=== PATIENT | female | born 1990 | race Caucasian/White ===

== ENCOUNTER 2024-04-22 06:53 | Outpatient (OUT) | payer OTHER, SELFPAY ==
--- NOTE | 2024-04-22 06:58 | MR_ITS ---
The [address] [address] Patient Name: KYRA CANO MRN: [id number] date: 1990 Sex: F Assigned Patient Location: MRI Current Patient Location: MRI Accession/Order Number: [id number] Exam Date: 04/22/2024 07:05 Report Date: 04/22/2024 08:00 At the request of: MARIAA CHANDLER Procedure: MR head/brain wo con MR head/brain wo con, 04/22/2024 7:05 AM EST INDICATION: altered mental status COMPARISON: There is no appropriate prior study for comparison. TECHNIQUE: Multiplanar, multisequential MRI images of brain were obtained without injection of contrast. FINDINGS: The cerebral sulci as well as ventricular system are appropriate for age. There is no restricted diffusion. There is no intracranial mass, mass effect, midline shift, intra or extra-axial fluid collection or large hemorrhage. Normal flow-void in the intracranial vessels is noted. The visualized portions of orbits, mastoid air cells as well as paranasal sinuses are unremarkable. MR/MR head/brain wo con IMPRESSION: No acute intracranial process is noted. Normal MRI of the brain. Electronically authenticated by: HEMAL COFFEY Date: 04/22/2024 08:00
--- NOTE | 2024-04-22 06:58 | CT_ITS ---
The [address] [address] Patient Name: KYRA CANO MRN: [id number] date: 1990 Sex: F Assigned Patient Location: MRI Current Patient Location: Accession/Order Number: [id number] Exam Date: 04/22/2024 08:15 Report Date: 04/23/2024 05:05 At the request of: MARIAA CHANDLER Procedure: CT chest w con EXAMINATION: CT chest w con HISTORY: r22.2 chest mass COMPARISON: No prior studies or reports available for comparison. TECHNIQUE: Multi-planar CT images were obtained without and/or with IV contrast as indicated by examination type. Axial, Coronal, and Sagittal images. Dose reduction techniques were achieved by using automated exposure control and/or adjustment of mA and/or kV according to patient size and/or use of iterative reconstruction technique. FINDINGS: LUNGS: 5 mm nodule within posterior medial left lung base; nonspecific but statistically favoring a granuloma. PLEURA: No mass, effusion, or pneumothorax. VASCULATURE: No abnormality. EBONIE: No mass or adenopathy. MEDIASTINUM: Soft tissue within upper anterior mediastinum favoring thymic tissue. CARDIAC: No enlargement or pericardial thickening.. Coronary artery calcifications: AORTA: No aneurysm or dissection. CHEST WALL: [Within anterior left chest wall. No axillary or supraclavicular mass or lymphadenopathy. BONES: No bone lesion or fracture. LIMITED ABDOMEN: No suspicious findings Limited images of the upper abdomen. OTHER: Negative. CT/CT chest w con IMPRESSION: 1. Soft tissue within upper anterior mediastinum favoring residual versus reactive sinus. No overtly suspicious findings. Electronically authenticated by: JANIA PAK Date: 04/23/2024 05:05
== END 2024-04-22 06:54 | disposition home or self-care (01) ==
LOC: MRI 06:53
PROVIDERS: PCP Family Medicine; Visit Provider Family Medicine
DX: R41.82 Altered mental status, unspecified (principal); R22.2 Localized swelling, mass and lump, trunk
CPT/HCPCS: 70551; 71260; Q9967

== ENCOUNTER 2024-11-28 08:23 | Outpatient (OUT) | payer OTHER, SELFPAY ==
--- OUTSIDE RECORDS SUMMARY | 2024-04-22 04:38 | XMS_ITS ---
Author Organization The [facility] in [place] Address [address] [place] [address] Care Team Providers Care Mop Man Name Role Phone Shaquille Chow Primary Care Provider [phone] REASON FOR VISIT MRI Results- Encounters Encounter Location Date Provider Diagnosis [address] [address] 04/22/2024 Shaquille Chow Plan Of Treatment No Information Progress Notes * MARGOIsabella AMESDOB:1990 (34 yo F)Acc No.[id number]:04/22/2024 Patient: Isabella MERINO :1990 A ge:34 Y S ex:Female Address:[address] [place] [address] * true * Date: Generated for Arii romana/Ale/eTransmitting on: 0 11/28/2024 08:25 AM EDT
--- OUTSIDE RECORDS SUMMARY | 2024-04-23 17:04 | XMS_ITS ---
Author Organization The [facility] in [place] Address [address] [place] [address] Care Team Providers Care Contractor Broomcorn Threshing Name Role Phone Shaquille Chow Primary Care Provider REASON FOR VISIT CT results Encounters Encounter Location Date Provider Diagnosis [address] [place] [address] 04/23/2024 Shaquille Chow Plan Of Treatment No Information Progress Notes * MARGOIsabella AMESDOB:1990 (34 yo F)Acc No.[id number]:04/23/2024 Patient: Isabella MERINO :1990 A ge:34 Y S ex:Female Address:[address] [place] [address] * true * Date: Generated for Arii romana/Ale/eTransmitting on: 0 11/28/2024 08:25 AM EDT
--- OUTSIDE RECORDS SUMMARY | 2024-08-26 04:30 | XMS_ITS ---
Author Organization [facility] es Address [address] [place] [address] Care Team Providers Care Posting Clerk Name Role Phone Darrion Marcos Primary Care Provider [phone] Tiffanie Price [phone] REASON FOR VISIT apro Encounters Encounter Location Date Provider Diagnosis [facility] [place] [place] [address] 08/26/2024 Tiffanie Mathew Plan Of Treatment Next Appt Details Provider Name:Abigail Jc, 01/08/2025 01:00:00 PM, [address], [place], [address], Provider Name:Tiffanie Mathew, 03/24/2025 02:45:00 PM, [address] [place], [address], Progress Notes * KYRA CANO PDOB:[birth year] (34 yo F)Acc No.[id number]:08/26/2024 Patient: Isabel KYRA SUN Provider: Meryl Mathew :1990 A ge:34 Y S ex:Female Date:08/26/2024 Address:[address], [place], [id number] Pcp:Darrion Marcos Subjective: * Chief Complaints: * 1 . Apro. * Medical History: Objective: * Vitals: Assessment: Plan: * Treatment: * Images: * Electronic signature of Azra Mathew on 11/28/2024 at 08:26 AM EDT Sign off status: Pending * Provider: Meryl Mathew Date: 0 08/26/2024 Generated for Lucho avendano/Ale/Shanna on: 0 11/28/2024 08:26 AM EDT
--- OUTSIDE RECORDS SUMMARY | 2024-10-23 09:02 | XMS_ITS ---
Author Organization The [facility] in [place] Address [address] [place] [address] Care Team Providers Care C Web Developer Name Role Phone Shaquille Chow Primary Care Provider [phone] chest Encounters Encounter Location Date Provider Diagnosis [facility] [address] [place] [address] 10/23/2024 Shaquille Chow Chest mass R22.2 Assessments Encounter Date Diagnosis (ICD Code) Assessment Notes Treatment Notes Treatment Clinical Notes Section Notes 10/23/2024 Chest mass (ICD-10 - R22.2) Plan Of Treatment Pending Test Test Name Order Date CT Chest w/contrast * 10/23/2024 Progress Notes * Isabella MCINTYREDOB:1990 (34 yo F)Acc No.[id number]:10/23/2024 Patient: Isabella MERINO :1990 A ge:34 Y S ex:Female Address:[address] [place] [address] Subjective: * Chief Complaints: * C T chest * Medical History: * Surgical History: * Hospitalization/Major Diagno stic Procedure: * Medications: Objective: * Vitals: * Physical Examination: Assessment: * Assessment: 1. C hest mass - R22.2 (Primary) Plan: * Treatment: * Procedure Codes: * true * Date: Generated for Printi ng/Faxing/eTransmitting on: 0 11/28/2024 08:25 AM EDT
--- OUTSIDE RECORDS SUMMARY | 2024-11-21 05:00 | XMS_ITS ---
Author Organization [facility] es Address [address] [place] [place] [address] Care Team Providers Care Rate Manager Name Role Phone Darrion Marcos Primary Care Provider [phone] Abigail Gillis Unavailable REASON FOR VISIT FILLING Encounters Encounter Location Date Provider Diagnosis [facility] [address] [place] [address] 11/21/2024 Abigail Peacock Plan Of Treatment Next Appt Details Provider Name:Abigail Peacock, 01/08/2025 01:00:00 PM, [address] [facility] [place], [address], Provider Name:Tiffanie Mathew, 03/24/2025 02:45:00 PM, [address] [place], [address], Progress Notes * KYRA CANO PDOB:[birth year] (34 yo F)Acc No.[id number]:11/21/2024 Patient: Isabel KYRA SUN Provider: Susana PEACOCK DDS :1990 A ge:34 Y S ex:Female Date:11/21/2024 Address:[address], [place], [place] Pcp:Darrion Marcos Subjective: * Chief Complaints: * 1 . FILLING. * Medical History: Objective: * Vitals: Assessment: Plan: * Treatment: * Images: * Electronic signature of Daria Peacock DDS on 11/28/2024 at 08:26 AM EDT Sign off status: Pending * Provider: Susana PEACOCK DDS Date: 11/21/2024 Generated for Lucho avendano/Ale/Shanna on: 11/28/2024 08:26 AM EDT
--- OUTSIDE RECORDS SUMMARY | 2024-11-21 09:45 | XMS_ITS | Encounter Summary ---
Author Organization [facility] Address [address] [place] [address] Care Team Providers Care Fittings Finisher Name Role Phone Ranulfo Gomez Unavailable Nicanor Chow MD Primary Care Provider [phone] Reason for Visit * Reason Comments sick visit Patient here for pro blem visit. Patient reports that she has been bleeding since she had the Mirena inserted which was on 07/23/24. Patient states that she was spotting at first then the bleeding got heavier than meter shop superintendent. Patient reports that she is having quarter size blood clots. LMP unknown. Patient reports using super tampon every several hours on her heavy days Encounter Details Date Type Department Care Team (Late st Contact Info) Description 11/21/2024 9:45 AM EDT Office Visit [facility] [address] [place] D [address] [phone] Tori Puente, DO [address] [phone] Breakthrough bleeding with IUD (Primary Dx); Hx of tubal ligation Social History Tobacco Use Types Packs/Day Years Used Date Smoking Tobacco: Former Cigarettes 0.5 5 Smokeless Tobacco: Former Alcohol Use Standard Drinks/Week Comments Not Currently 0 (1 standard drink = 0.6 oz pur e alcohol) Comments No Sex and Gender Information Value Date Recorded Sex Assigned at Not on file Legal Sex Female 6:56 PM EDT Gender Identity Not on file Sexual Orientation Not on file documented as of this encounter Last Filed Vital Signs Vital Sign Reading Time Taken Comments Blood Pressure 110/70 11/21/2024 9:39 AM EDT Pulse - - Temperature - - Respiratory Rate - - Oxygen Saturation - - Inhaled Oxygen Concentration - - Weight 67.6 kg (149 lb) 11/21/2024 9:39 AM EDT Height - - Body Mass Index 26.39 07/07/2023 8:08 AM EST documented in this encounter Progress Notes * Tori Puente, DO - 11/21/2024 9:45 AM EDT Images from the original note were not included. Subjective Isabella Mcintyre is a 34 y.o. female HPI Chief Complaint Patient presents with sick visit Patient here for problem visit. Patient reports that she has been bleeding since she had the Mirenainserted which was on 07/23/24. Patient states that she was spotting at first then the bleeding got heavier than meter shop superintendent. Patient reports that she is having quarter size blood clots. LMP unknown. Patient reports using super tampon every several hours on her heavy days Past Medical History: Diagnosis Date Ingrown toenail Ruptured ovarian cyst right cyst Past Surgical History: Procedure Laterality Date SECTION, LOW TRANSVERSE x4 TUBAL LIGATION Bilateral Family History Problem Relation Name Age of Onset Osteoporosis Mother's Sister Jenise Chavez Social History Tobacco Use Smoking status: Former Current packs/day: 0.50 Average packs/day: 0.5 packs/day for 5.0 years (2.5 ttl pk-yrs) Types: Cigarettes Smokeless tobacco: Former Vaping Use Vaping status: Never Used Substance Use Topics Alcohol use: Not Currently Drug use: Never OB History Para Term AB Living 4 4 4 SAB IAB Ectopic Multiple Live Births # Outcome Date GA Lbr Wilmer/2nd Weight Sex Type Anes PTL Lv 4 Term 3 Term 2 Term 1 Term No Known Allergies Current Outpatient Medications on File Prior to Visit Medication Sig Dispense Refill Levonorgestrel (Mirena, 52 MG,) 20 MCG/DAY intrauterine device by Intrauterine route No current facility-administered medications on file prior to visit. Review of Systems Constitutional: Negative for chills and fever. Respiratory: Negative for shortness of breath. Cardiovascular: Negative for chest pain. Gastrointestinal: Negative for nausea and vomiting. Genitourinary: Negative for dysuria, pelvic pain and vaginal discharge. Neurological: Negative for dizziness and headaches. Objective BP 110/70 Wt 149 lb BMI 26.39 kg/m?? Physical Exam Constitutional: Appearance: Normal appearance. Genitourinary: No lesions in the vagina. Right Labia: No lesions. Left Labia: No lesions. Vaginal bleeding (scant light brown in vault) present. No vaginal discharge. Right Adnexa: not tender and no mass present. Left Adnexa: not tender and no mass present. No cervical lesion. IUD strings visualized. Uterus is not tender. Uterus is anteverted. Neurological: Mental Status: She is alert. Skin: General: Skin is warm and dry. Psychiatric: Mood and Affect: Mood normal. Assessment/Plan 1. Breakthrough bleeding with IUD (Primary) Pelvic ultrasound to be scheduled and will discuss findings at the next office visit. Reassured patient 2. Hx of tubal ligation documented in this encounter Plan of Treatment Upcoming Encounters Date Type Department Care Team (Late st Contact Info) Description 12/19/2024 1:00 PM EDT Ancillary Procedure [facility] [address] [address] 12/19/2024 1:45 PM EDT Office Visit [facility] [address] [address] Tori Puente DO [address] [facility] D [address] [address] 08/04/2025 1:30 PM EDT Office Visit [facility] [address] [address] Tori Puente DO [address] [address] documented as of this encounter Visit Diagnoses Diagnosis Breakthrough bleeding with IUD- Primary Hx of tubal ligation documented in this encounter Care Teams Fittings Finisher Relationship Specialty Start Date End Date Ranulfo Gomez PA [address] [place] [address] PCP - [facility] 05/22/24 Nicanor Chow MD [address] [place] [address] PCP - General Family Medicine 10/02/24 documented as of this encounter
--- OUTSIDE RECORDS SUMMARY | 2024-11-28 08:25 | XMS_ITS | Clinical Summary ---
Author Organization [facility] Address [address] [place] [address] Care Team Providers Care Sheet Metal Assembler And Riveter Name Role Phone Nicanor Chow MD Primary Care Provider [phone] Allergies No known active allergies Medications norethindrone-et hinyl estradiol (FEMHRT 05/26) 1-5 mg-mcg Tab Take by mouth daily . Active citalopram (CELEXA) 10 MG tablet Take 1 (one) tablet (10 mg total) by mouth daily . Active Social History Tobacco Use Types Packs/Day Years Used Date Smoking Tobacco: Never Passive Smoke Exposure: Never Smokeless Tobacco: Never Tobacco Cessation:Counseling Given: Not Answered Alcohol Use Standard Drinks/Week Comments Not Currently 0 (1 standard drink = 0.6 oz pur e alcohol) Comments Unknown Sex and Gender Information Value Date Recorded Sex Assigned at Not on file Legal Sex Female 11:08 AM EDT Gender Identity Female 10/14/2022 11:38 AM EDT Sexual Orientation Straight 10/14/2022 11 :38 AM EDT Last Filed Vital Signs Vital Sign Reading Time Taken Comments Blood Pressure 110/68 10/14/2022 11:12 AM EDT Pulse 99 10/14/2022 11:12 AM EDT Temperature 36.5 C (97.7 F) 10/14/2022 11:12 AM EDT Respiratory Rate 16 10/14/2022 11:12 AM EDT Oxygen Saturation 98% 10/14/2022 11:12 AM EDT Inhaled Oxygen Concentration - - Weight 69.4 kg (153 lb) 10/14/2022 11:12 AM EDT Height 160 cm (5' 3 ) 10/14/2022 11:12 AM EDT Body Mass Index 27.1 10/14/2022 11:12 AM EDT Plan of Treatment Health Maintenance Due Date Last Done Comments Wellness Visit 1994 Depression Screening/Follow-Up (PHQ-2/9) 2003 HIV Screening 2006 Hepatitis C Screening 2009 Pap Smear 01/18/2012 Cervical Cancer Screening 2021 HPV/Cotest 2021 COVID-19 Vaccine (3 2023-2 5 season) 2024 02/18/2021, 01/28/2021 Influenza Vaccine (#1) 2025 Tetanus: Every 10yrs 10/31/2029 11/01/2019 Pneumococcal Vaccine: Ped or At-Risk Aged Out No longer eligible b ased on patient's age to complete this topic Insurance [employer] Care Teams Sheet Metal Assembler And Riveter Relationship Specialty Start Date End Date Nicanor Chow MD [address] [place] [address] [place] [address] PCP - General Family Medicine 10/14/22
--- OUTSIDE RECORDS SUMMARY | 2024-11-28 08:25 | XMS_ITS | Clinical Summary ---
Author Organization [facility] Address [facility] [address] [id number] Care Team Providers Care Tea And Spice Supervisor Name Role Phone Nicanor Chow MD Primary Care Provider [phone] Allergies No known active allergies Medications ciprofloxacin HCl (CIPRO) 500 mg tablet 03/09/2017 Active citalopram (CeleXA) 40 mg tablet 02/22/2017 Active fluconazole (DIFLUCAN) 100 mg tablet 03/09/2017 Active medroxyPROGESTER one (DEPO-PROVERA) 150 mg/mL syringe 12/27/2016 Active phenazopyridine (PYRIDIUM) 200 mg tablet 03/09/2017 Active triamcinolone (KENALOG) 0.1 % cream 03/09/2017 Active cyclobenzaprine (FLEXERIL) 5 mg tabletIndication s:Lumbar paraspinal muscle spasm Take 1 tablet (5 mg total) by mouth 2 (two) times a day as needed for muscle spasms. 20 tablet 03/17/2017 Active Active Problems Problem Noted Date Diagnosed Date Chronic bilateral low back pain with bilateral s ciatica 03/17/2017 Lumbar paraspinal muscle spasm 03/17/2017 Family History Medical History Relation Name Comments No Known Problems Father No Known Problems Mother Relation Name Status Comments Father Alive Mother Alive Social History Tobacco Use Types Packs/Day Years Used Date Smoking Tobacco: Some Days Childcare Answer Date Recorded Childcare Unknown 11/01/2018 Employment Answer Date Recorded Employment Unknown 11/01/2018 Purpose - Life Answer Date Recorded Purpose and direction in life Unknown Comments No Sex and Gender Information Value Date Recorded Sex Assigned at Not on file Legal Sex Female 7:29 PM EDT Gender Identity Not on file Sexual Orientation Not on file Last Filed Vital Signs Vital Sign Reading Time Taken Comments Blood Pressure 115/70 03/17/2017 7:40 PM EDT Pulse 95 03/17/2017 7:40 PM EDT Temperature 36.9 C (98.4 F) 03/17/2017 7:40 PM EDT Respiratory Rate 18 03/17/2017 7:40 PM EDT Oxygen Saturation 99% 03/17/2017 7:40 PM EDT Inhaled Oxygen Concentration - - Weight 70.3 kg (155 lb) 03/17/2017 7:40 PM EDT Height 160 cm (5' 3 ) 03/17/2017 7:40 PM EDT Body Mass Index 27.46 03/17/2017 7:40 PM EDT Plan of Treatment Health Maintenance Due Date Last Done Comments Depression Screening 2003 Tobacco Screening 2003 Adult BMI Screening 2009 DTaP,Tdap and Td Vaccines (1 - Tdap) 2010 Pap Smear 01/18/2012 Influenza Vaccine 01/20/2025 Medical Devices Not on file Insurance [employer] Care Teams Tea And Spice Supervisor Relationship Specialty Start Date End Date Nicanor Chow MD PCP - General 03/17/17
--- OUTSIDE RECORDS SUMMARY | 2024-11-28 08:25 | XMS_ITS | Clinical Summary ---
Author Organization [facility] Address [address] [place] [address] Care Team Providers Care Window Installer Name Role Phone Ranulfo Gomez Unavailable Nicanor Chow MD Primary Care Provider [phone] Allergies No known active allergies Medications Levonorgestrel (Mirena, 52 MG,) 20 MCG/DAY intrauterine device by Intrauterine route 033 Active Active Problems Problem Noted Date Diagnosed Date Onychocryptosis 10/12/2022 Cellulitis of left lower limb 10/12/2022 Abscess of left great toe 10/12/2022 Chronic bilateral low back pain with bilateral s ciatica 03/17/2017 Encounters Date Type Department Care Team Description 11/21/2024 9:45 AM EDT Office Visit [facility] [address] [phone] Tori Puente DO Breakthrough bleeding with IUD (Primary Dx); Hx of tubal ligation 11/21/2024 Travel 10/02/2024 2:15 PM EDT Office Visit [facility] [address] [phone] Tori Puente DO IUD check up (Primary Dx); Family planning services; Hx of tubal ligation; Breast tenderness in female; Fibrocystic breast disease (FCBD), unspecified laterality 10/02/2024 Travel from Last 3 Months Family History Medical History Relation Name Comments Osteoporosis Mother's Sister Jenise Chavez Relation Name Status Comments Father Alive Mother Alive Mother's Sister Jenise Chavez Social History Tobacco Use Types Packs/Day Years [...] Pressure 110/70 11/21/2024 9:39 AM EDT Pulse 98 12/07/2022 1:45 PM EDT Temperature 36.2 C (97.1 F) 07/07/2023 8:08 AM EST Respiratory Rate 16 01/09/2023 2:28 PM EDT Oxygen Saturation - - Inhaled Oxygen Concentration - - Weight 67.6 kg (149 lb) 11/21/2024 9:39 AM EDT Height 160 cm (5' 3 ) 07/07/2023 8:08 AM EST Body Mass Index 26.39 07/07/2023 8:08 AM EST Plan of Treatment Upcoming Encounters Date Type Department Care Team (Late st Contact Info) Description 12/19/2024 1:00 PM EDT Ancillary Procedure [facility] [address] [phone] 12/19/2024 1:45 PM EDT Office Visit [facility] [address] [address] Tori Puente DO [address] [address] 08/04/2025 1:30 PM EDT Office Visit [facility] [address] [phone] Tori Puente DO [address] [place] [address] Health Maintenance Due Date Last Done Comments HPV/Cotest 2021 Influenza Vaccine (#1) 2025 Cervical Cancer Screening 07/26/2025 Pap Smear 07/26/2025 07/26/2022 Procedures Procedure Name Priority Date/Time Associated Diagnosis Comments THINPREP TIS PAP AND HPV MRNA E6/E7 REFLEX HPV 16,18/45 (01015) Routine 07/26/2022 12:00 AM EST from Last 3 Months or Most Recently Relevant to Health Maintenance Results * THINPREP TIS PAP AND HPV MRNA E6/E7 REFLEX HPV 16,18/45 (35268) (07/26/2022 12:00 AM EST) Miguel Angel Montano MD [facility] Final Result [facility] from Last 3 Months or Most Recently Relevant to Health Maintenance Insurance [employer] Care Teams Window Installer Relationship Specialty Start Date End Date Ranulfo Gomez PA [address] [place] [address] PCP - [facility] 05/22/24 Nicanor Chow MD [address] [place] [address] PCP - General Family Medicine 10/02/24
--- OUTSIDE RECORDS SUMMARY | 2024-11-28 08:25 | XMS_ITS | Encounter Summary ---
Author Organization [facility] Address [address] [facility] [place] [address] Care Team Providers Care Sorter/Assay Tech Name Role Phone Ranulfo Gomez Unavailable Nicanor Chow MD Primary Care Provider [phone] Encounter Details Date Type Department Care Team (Latest Contact Info) Description 11/21/2024 Travel Social History Tobacco Use Types Packs/Day Years [...] on file documented as of this encounter Plan of Treatment Upcoming Encounters Date Type Department Care Team (Late st Contact Info) Description 12/19/2024 1:00 PM EDT Ancillary Procedure [facility] [address] [place] [address] [address] 12/19/2024 1:45 PM EDT Office Visit [facility] [address] [place] [address] [address] Tori Puente, DO [address] [phone] 08/04/2025 1:30 PM EDT Office Visit [facility] [address] [place] [address] [phone] Tori Puente, DO [address] [phone] documented as of this encounter Visit Diagnoses Not on filedocumented in this encounter Care Teams Sorter/Assay Tech Relationship Specialty Start Date End Date Ranulfo Gomez PA [address] [place] [address] PCP - [facility] 05/22/24 Nicanor Chow MD [address] [place] [address] PCP - General Family Medicine 10/02/24 documented as of this encounter
--- OUTSIDE RECORDS SUMMARY | 2024-11-28 08:25 | XMS_ITS | Patient Health Record ---
Author Organization [facility] in [place] Address [address] [place] [address] Care Team Providers Care Ironing Pleater Name Role Phone Shaquille Chandler Primary Care Provider [phone] Allergies No Known Allergies Results Component Value Reference Range Notes CT CHEST W CON Reviewed date:04/28/2024 06:35:40 PM Interpretation: Performing Lab: Notes/Report: Source Facility: [place] [address] CT Scan Report Signed with Addenda Patient: KYRA MCINTYRE MR#: [id number] : 1990 Acct:[id number] Age/Sex: 34 / F ADM Date: 04/22/24 Loc: MRI Attending Dr: Mariaa Chandler M.D. Ordering Physician: Mariaa Chandler M.D. Date of Service: 04/22/24 Procedure(s): CT chest w con Accession Number(s): [id number] cc: Mariaa Chandler M.D. ADDENDUM [facility] [place] [id number] Patient Name: KYRA MCINTYRE MRN: [id number] date: 1990 Sex: F Assigned Patient Location: MRI Current Patient Location: MRI Accession/Order Number: [id number] Exam Date: 04/22/2024 08:15 Report Date: 04/26/2024 09:36 At the request of: MARIAA CHANDLER Procedure: CT chest w con Begin Addendum #1 IMPRESSION #1 should correctly state: 1. Soft tissue within upper anterior mediastinum favoring residual versus reactive THYMUS. No overtly suspicious findings. Original Report EXAMINATION: CT chest w con HISTORY: r22. 2 chest mass COMPARISON: No prior studies or reports available for comparison. TECHNIQUE: Multi-planar CT images were obtained without and/or with IV contrast as indicated by examination type. Axial, Coronal, and Sagittal images. Dose reduction techniques were achieved by using automated exposure control and/or adjustment of mA and/or kV according to patient size and/or use of iterative reconstruction technique. FINDINGS: LUNGS: 5 mm nodule within posterior medial left lung base; nonspecific but statistically favoring a granuloma. PLEURA: No mass, effusion, or pneumothorax. VASCULATURE: No abnormality. EBONIE: No mass or adenopathy. MEDIASTINUM: Soft tissue within upper anterior mediastinum favoring thymic tissue. CARDIAC: No enlargement or pericardial thickening. . Coronary artery calcifications: AORTA: No aneurysm or dissection. CHEST WALL: [Within anterior left chest wall. No axillary or supraclavicular mass or lymphadenopathy. BONES: No bone lesion or fracture. LIMITED ABDOMEN: No suspicious findings Limited images of the upper abdomen. OTHER: Negative. Addendum Dictated By: Dieter Ledesma M.D. Addendum Signed By: 04/26/24 0 939 Addendum Cosigned By: DD/ /13/935 TD/TT: / ADDENDUM CT/CT chest w con IMPRESSION: 1. Soft tissue within upper anterior mediastinum favoring residual versus reactive sinus. No overtly suspicious findings. Electronically authenticated by: DIETER LEDESMA Date: 04/26/2024 09:36 Addendum Dictated By: Dieter Ledesma M.D. Addendum Signed By: 04/26/24 0 939 Addendum Cosigned By: DD/ /13/935 TD/TT: / [address] [address] Patient Name: KYRA MCINTYRE MRN: [id number] date: 1990 Sex: F Assigned Patient Location: MRI Current Patient Location: Accession/Order Number: [id number] Exam Date: 04/22/2024 08:15 Report Date: 04/23/2024 05:05 At the request of: MARIAA CHANDLER Procedure: CT chest w con EXAMINATION: CT chest w con HISTORY: r22.2 chest mass COMPARISON: No prior studies or reports available for comparison. TECHNIQUE: Multi-planar CT images were obtained without and/or with IV contrast as indicated by examination type. Axial, Coronal, and Sagittal images. Dose reduction techniques were achieved by using automated exposure control and/or adjustment of mA and/or kV according to patient size and/or use of iterative reconstruction technique. FINDINGS: LUNGS: 5 mm nodule within posterior medial left lung base; nonspecific but statistically favoring a granuloma. PLEURA: No mass, effusion, or pneumothorax. VASCULATURE: No abnormality. EBONIE: No mass or adenopathy. MEDIASTINUM: Soft tissue within upper anterior mediastinum favoring thymic tissue. CARDIAC: No enlargement or pericardial thickening.. Coronary artery calcifications: AORTA: No aneurysm or dissection. CHEST WALL: [Within anterior left chest wall. No axillary or supraclavicular mass or lymphadenopathy. BONES: No bone lesion or fracture. LIMITED ABDOMEN: No suspicious findings Limited images of the upper abdomen. OTHER: Negative. CT/CT chest w con IMPRESSION: 1. Soft tissue within upper anterior mediastinum favoring residual versus reactive sinus. No overtly suspicious findings. Electronically authenticated by: DIETER LEDESMA Date: 04/23/2024 05:05 Dictated By: Dieter Ledesma M.D. Signed By: 04/23/24 0508 DD/ 0505 TD/TT: Tub Wash Operator: [place] [address] CT Scan Report Signed with Addenda Patient: DRE MCINTYRE OR Tanner MR#: [id number] : 1990 Acct:[id number] Age/Sex: 34 / F ADM Date: 04/22/24 Loc: MRI Attending Dr: Mariaa Chandler M.D. Ordering Physician: Mariaa Chandler M.D. Date of Service: 04/22/24 Procedure(s): CT chest w con Accession Number(s): [id number] cc: Mariaa Chandler M.D. ADDENDUM [address] [address] Patient Name: KYRA MCINTYRE MRN: [id number] date: 1990 Sex: F Assigned Patient Location: MRI Current Patient Location: MRI Accession/Order Numb er: [id number] Exam Date: 08:15 Report Date: 04/26/2024 09:36 At the request of: MARIAA CHANDLER Procedure: CT chest w con Begin Addendum #1 IMPRESSION #1 should correctly state: 1. Soft tissue withi n upper anterior mediastinum favoring residual versus reactive THYMUS. No overtly suspicious findings. Original Report EXAMINATION: CT chest w con HISTORY: r22. 2 chest mass COMPARISON: No prior studies or reports available for comparison. TECHNIQUE: Multi-veronica mike CT images were obtained without and/or with IV contrast as indicated by exam ination type. Axial, Coronal, and Sagittal images. Dose reduction techniques were achieved by using automated exposure control and/or adjustment of mA and /or kV according to patient size and/or use of iterative reconstruction technique. FINDINGS: LUNGS: 5 mm nodule w ithin posterior medial left lung base; nonspecific but statistically favori ng a granuloma. PLEURA: No mass, eff usion, or pneumothorax. VASCULATURE: No abnormality. EBONIE: No mass or adenopathy. MEDIASTINUM: Soft ti ssue within upper anterior mediastinum favoring thymic tissue. CARDIAC: No enlargem ent or pericardial thickening. . Coronary artery calcifications: AORTA: No aneurysm o r dissection. CHEST WALL: [Within anterior left chest wall. No axillary or supraclavicular mass or lymphadenopathy. BONES: No bone lesio n or fracture. LIMITED ABDOMEN: No suspicious findings Limited images of the upper abdomen. OTHER: Negative. Addendum Dictated By : Dieter Ledesma M.D. Addendum Signed By: 04/26/24 0 939 Addendum Cosigned By: DD/ /13/935 TD/TT: / ADDENDUM C T/CT chest w con IMPRESSION: 1. Soft tissue withi n upper anterior mediastinum favoring residual versus reactive sinus. No o vertly suspicious findings. Electronically authe nticated by: DIETER LEDESMA Date: 04/26/2024 09:36 Addendum Dictated By : Dieter Ledesma M.D. Addendum Signed By: 04/26/24 0 939 Addendum Cosigned By: DD/ /13/935 TD/TT: / [place] [id number] Patient Name: KYRA MCINTYRE MRN: [facility]:[id number] date: 1990 Sex: F Assigned Patient Location: MRI Current Patient Location: Accession/Order Numb er: [id number] Exam Date: 08:15 Report Date: 04/23/2024 05:05 At the request of: MARIAA CHANDLER Procedure: CT chest w con EXAMINATION: CT chest w con HISTORY: r22.2 chest mass COMPARISON: No prior studies or reports available for comparison. TECHNIQUE: Multi-veronica mike CT images were obtained without and/or with IV contrast as indicated by exam ination type. Axial, Coronal, and Sagittal images. Dose reduction techniques were achieved by using automated exposure control and/or adjustment of mA and /or kV according to patient size and/or use of iterative reconstruction technique. FINDINGS: LUNGS: 5 mm nodule w ithin posterior medial left lung base; nonspecific but statistically favori ng a granuloma. PLEURA: No mass, eff usion, or pneumothorax. VASCULATURE: No abnormality. EBONIE: No mass or adenopathy. MEDIASTINUM: Soft ti ssue within upper anterior mediastinum favoring thymic tissue. CARDIAC: No enlargem ent or pericardial thickening.. Coronary artery calcifications: AORTA: No aneurysm o r dissection. CHEST WALL: [Within anterior left chest wall. No axillary or supraclavicular mass or lymphadenopathy. BONES: No bone lesio n or fracture. LIMITED ABDOMEN: No suspicious findings Limited images of the upper abdomen. OTHER: Negative. C T/CT chest w con IMPRESSION: 1. Soft tissue withi n upper anterior mediastinum favoring residual versus reactive sinus. No o vertly suspicious findings. Electronically authe nticated by: DIETER LEDESMA Date: 04/23/2024 05:05 Dictated By: Dieter Ledesma M.D. Signed By: 04/23/24 0508 DD/ 0505 TD/TT: Tub Wash Operator: MR head/brain wo con Reviewed date:04/22/2024 08:38:43 AM Interpretation: Performing Lab: Notes/Report: Source Facility: [place] [address] [place] [address] Magnetic Resonance Report Signed Patient: KYRA MCINTYRE MR#: [id number] : 1990 Acct:[id number] Age/Sex: 34 / F ADM Date: 04/22/24 Loc: MRI Attending Dr: Mariaa Chandler M.D. Ordering Physician: Mariaa Chandler M.D. Date of Service: 04/22/24 Procedure(s): MR head/brain wo con Accession Number(s): [id number] cc: Mariaa Chandler M.D. [place] [address] Patient Name: KYRA MCINTYRE MRN: [id number] date: 1990 Sex: F Assigned Patient Location: MRI Current Patient Location: MRI Accession/Order Number: [id number] Exam Date: 04/22/2024 07:05 Report Date: 04/22/2024 08:00 At the request of: MARIAA CHANDLER Procedure: MR head/brain wo con MR head/brain wo con, 04/22/2024 7:05 AM EST INDICATION: altered mental status COMPARISON: There is no appropriate prior study for comparison. TECHNIQUE: Multiplanar, multisequential MRI images of brain were obtained without injection of contrast. FINDINGS: The cerebral sulci as well as ventricular system are appropriate for age. There is no restricted diffusion. There is no intracranial mass, mass effect, midline shift, intra or extra-axial fluid collection or large hemorrhage. Normal flow-void in the intracranial vessels is noted. The visualized portions of orbits, mastoid air cells as well as paranasal sinuses are unremarkable. MR/MR head/brain wo con IMPRESSION: No acute intracranial process is noted. Normal MRI of the brain. Electronically authenticated by: HEMAL CASTRO Date: 04/22/2024 08:00 Dictated By: Hemal Castro M.D. Signed By: 04/22/24801 DD/ 9 TD/TT: Tub Wash Operator: [place] [address] Magnetic Resonance Report Signed Patient: DRE MCINTYRE MR#: [id number] : 1990 Acct:[id number] Age/Sex: 34 / F ADM Date: 04/22/24 Loc: MRI Attending Dr: Mariaa Chandler M.D. Ordering Physician: Mariaa Chandler M.D. Date of Service: 04/22/24 Procedure(s): MR hebharti d/brain wo con Accession Number(s): [id number] cc: Mariaa Chandler M.D. [place] [address] Patient Name: KYRA MCINTYRE MRN: [id number] date: 1990 Sex: F Assigned Patient Location: MRI Current Patient Location: MRI Accession/Order Numb er: [id number] Exam Date: 07:05 Report Date: 04/22/2024 08:00 At the request of: MARIAA CHANDLER Procedure: MR head/brain wo con MR head/brain wo con , 04/22/2024 7:05 AM EST INDICATION: altered mental status COMPARISON: There is no appropriate prior study for comparison. TECHNIQUE: Multiplan ar, multisequential MRI images of brain were obtained without injection of contrast. FINDINGS: The cerebral sulci a s well as ventricular system are appropriate for age. There is no restrict ed diffusion. There is no intracra nial mass, mass effect, midline shift, intra or extra-axial fluid collection or large hemorrhage. Normal flow-void in the intracranial vessels is noted. The visualized porti ons of orbits, mastoid air cells as well as paranasal sinuses are unremarkable. M R/MR head/brain wo con IMPRESSION: No acute intracrania l process is noted. Normal MRI of the brain. Electronically authe nticated by: HEMAL CASTRO Date: 04/22/2024 08:00 Dictated By: Hemal Castro M.D. Signed By: 04/22/24801 DD/ 9 TD/TT: Tub Wash Operator: Reason For Referral No Information Medications Medication SIG (Take, Route, Frequency, Duration) Notes Start Date End Date Status Norethin Bravo-Eth Estrad-FE 1-20 MG-MCG(24) Oral for 28 Days Active Probiotic Active Varenicline Tartrate 1 MG 1 tab Orally bid 023 Unknown Hydrocortisone Bravo-Pramoxine 2.5-1 % 1 application Externally Three times a day Unknown Doxycycline Monohydrate 100 MG 1 capsule Orally BID for 12/01/2022 Unknown Cipro 500 MG 1 tablet Orally ever y 12 hrs for 12/01/2022 Unknown Social History Tobacco Use: Social History Observation Description Date Details (start date - stop date) Former Smoker 03/22/2008 - 03/22/2021 Tobacco Control (Standard) Question Answer Notes Tobacco use: Former smoker When did you start smoking? 03/22/2008 When did you stop smoking? 03/22/2021 How long has it been since you last smoked? 1-5 years AUDIT-C (Standard) Question Answer Notes Did you have a drink contain ing alcohol in the past year? Yes How often did you have six o r more drinks on one occasion in the past year? Less than monthly (1 point) How many drinks did you have on a typical day when you were drinking in the past year? 3 or 4 drinks (1 point) How often did you have a dri nk containing alcohol in the past year? 2 to 3 times a week (3 points) Points 5 Interpretation Positive Problems Problem Type SNOMED Code ICD Code Onset Dates Problem Status W/U Status Risk Notes Problem Altered mental status (456318481) Altered mental status (R41.82) Active confirmed Problem Chest mass (033484866) Chest mass (R22.2) Active confirmed Vital Signs Blood pressure diastolic 64 mm Hg 03/28/2024 Height 63 in 03/28/2024 Blood pressure systolic 102 mm Hg 03/28/2024 Weight 153.0 lbs 03/28/2024 BMI 27.1 kg/m2 03/28/2024 Encounters Encounter Location Date Provider Diagnosis [facility] [address] [place] [address] 03/28/2024 Shaquille Chandler Altered mental statu s R41.82 and Chest mass R22.2 [facility] [address] [place] [address] 03/28/2024 Shaquille Hoy Chest mass R22.2 [facility] [address] [place] [address] 04/17/2024 Shaquille [facility] [address] [place] [address] 04/22/2024 Shaquille Chandler [facility] [address] [place] [address] 04/23/2024 Shaquille yoselin [facility] [address] [place] [address] 10/23/2024 Shaquille Chandler Chest mass R22.2 Assessments Encounter Date Diagnosis (ICD Code) Assessment Notes Treatment Notes Treatment Clinical Notes Section Notes 03/28/2024 Altered mental status (ICD-10 - R41.82) 03/28/2024 Chest mass (ICD-10 - R22.2) recommending PET scan for possiuble tumor 03/28/2024 Chest mass (ICD-10 - R22.2) 10/23/2024 Chest mass (ICD-10 - R22.2) Plan Of Treatment Pending Test Test Name Order Date CT Chest w/contrast * 03/28/2024 CT Chest w/contrast * 10/23/2024 MRI BRAIN WO CON 03/28/[address] SKULL BASE MID THIGH 03/28/2024 Insurance Providers Payer Name Payer Address Payer Phone Subscriber Number Group Number Insured Name Patient Relationship to Insured Coverage Start Date Coverage End Date [employer] [place] [employer] [address] [place] [address] [id number] Kyra Mcintyre Self - patient is the insured Medical (General) History Surgical History Surgery Date(Month/Year) removed tubes x4 tonsils loop recorder ablasion
--- NOTE | 2024-11-28 08:26 | CT_ITS ---
The [address] [address] Patient Name: KYRA CANO MRN: [id number] date: 1990 Sex: F Assigned Patient Location: CT Current Patient Location: CT Accession/Order Number: [id number] Exam Date: 11/28/2024 10:50 Report Date: 11/28/2024 10:57 At the request of: MARIAA CHANDLER MD Procedure: CT chest w con CT CHEST WITH INTRAVENOUS CONTRAST: CLINICAL HISTORY: Follow-up left lower lobe nodule COMPARISON: 04/22/2024 TECHNIQUE: Spiral images were obtained through the chest following intravenous administration of 100 mL of Omnipaque 300. Images were reviewed using both narrow and wide window settings. This CT exam was performed using one or more following dose reduction techniques: Automated exposure control, adjustment of the mA and/or kV according to patient size, or use of iterative reconstruction technique. FINDINGS: The heart is not enlarged. There is no pericardial effusion. No aortic aneurysm or dissection is seen. There is similar soft tissue density at the anterior mediastinum suggesting thymus. There is no developing mediastinal or hilar lymphadenopathy. The bony structures are intact. There is slight dextroscoliotic curvature. No consolidation, pleural effusion or pneumothorax is identified. A stable 5 mm nodule is seen at the left lower lobe (axial image 63). No developing nodularity is identified. Limited imaging through the upper abdomen shows no contributory findings. CT/CT chest w con IMPRESSION: STABLE LEFT LOWER LOBE PULMONARY NODULE. SIMILAR ANTERIOR MEDIASTINAL SOFT TISSUE DENSITY SUGGESTING THYMUS. NO ACUTE FINDINGS. Impression dictated by: Miguelina Solitario M.D. 11/28/2024 10:57 AM Dictation Location: [place] [address] Electronically authenticated by: [id number] Y Date: 11/28/2024 10:57
--- OUTSIDE RECORDS SUMMARY | 2024-11-28 08:26 | XMS_ITS | Clinical Summary ---
Author Organization [facility] Address [address] [place] [address] Care Team Providers Care Para Professional Name Role Phone Nicanor Chow MD Primary Care Provider [phone] Allergies No known active allergies Medications norethindrone-et hinyl estradiol (JINTELI, FYAVOLV) 1-5 MG-MCG TABS per tablet Take by mouth daily Active ibuprofen (ADVIL;MOTRIN) 800 MG tablet Take 1 tablet by mouth every 6 hours as needed for Pain 30 tablet 1 07/21/2024 Active Active Problems Problem Noted Date Diagnosed Date Hypokalemia 12/17/2017 Social History Tobacco Use Types Packs/Day Years Used Date Smoking Tobacco: Every Day Smokeless Tobacco: Never Alcohol Use Standard Drinks/Week Comments Yes 0 (1 standard drink = 0.6 oz pur e alcohol) occasionally AUDIT-C Answer Date Recorded Q1: How often do you have a drink containing alcohol? Never 05/15/2024 Q2: How many drinks containi ng alcohol do you have on a typical day when you are drinking? Patient does not drink Q3: How often do you have si x or more drinks on one occasion? Never 05/15/2024 Interpersonal Safety Domain Source: IP Abuse Scr eening Answer Date Recorded Physical abuse Denies 07/21/2024 Verbal abuse Denies 07/21/2024 Emotional abuse Denies 07/21/2024 Financial abuse Denies 07/21/2024 Sexual abuse Denies 07/21/2024 Comments No Sex and Gender Information Value Date Recorded Sex Assigned at Not on file Legal Sex Female 4:36 PM EST Gender Identity Not on file Sexual Orientation Not on file Last Filed Vital Signs Vital Sign Reading Time Taken Comments Blood Pressure 106/69 07/21/2024 7:48 PM EST Pulse 72 07/21/2024 5:16 PM EST Temperature 36.5 C (97.7 F) 07/21/2024 4:29 PM EST Respiratory Rate 18 07/21/2024 5:16 PM EST Oxygen Saturation 96% 07/21/2024 7:48 PM EST Inhaled Oxygen Concentration - - Weight 68.1 kg (150 lb 3.2 oz) 07/21/2024 4:29 P M EST Height 160 cm (5' 3 ) 07/21/2024 4:29 PM EST Body Mass Index 26.61 07/21/2024 4:29 PM EST Plan of Treatment Health Maintenance Due Date Last Done Comments Depression Screen 2003 Varicella vaccine (1 of 2 - 13+ 2-dose series) 01/18/2004 HIV screen 2006 Hepatitis C screen 2009 Hepatitis B vaccine (1 of 3 - 19+ 3-dose series) 2010 Pneumococcal 0-49 years Vaccine (1 of 2 - PCV) 2010 Pap smear 01/18/2012 Cervical cancer screen 2021 HPV (without or with Pap) 2021 COVID-19 Vaccine (3 - 2023-2 5 season) 2024 02/18/2021, 01/28/2021 Flu vaccine (#1) 12/20/2024 DTaP/Tdap/Td vaccine (2 - Td or Tdap) 10/31/2029 11/01/2019 HPV vaccine Aged Out No longer eligi ble based on patient's age to complete this topic Hepatitis A vaccine Aged Out No longe r eligible based on patient's age to complete this topic Hib vaccine Aged Out No longer eligi ble based on patient's age to complete this topic Meningococcal (ACWY) vaccine Aged Out No longer eligible based on patient's age to complete this topic Meningococcal B vaccine Aged Out No l onger eligible based on patient's age to complete this topic Polio vaccine Aged Out No longer elig ible based on patient's age to complete this topic Insurance [employer] Advance Directives * Full Code (Latest Code Status on File) Date Activated Date Inactivated Comments 12/17/2017 3:20 AM 12/17/2017 4:30 PM Care Teams Para Professional Relationship Specialty Start Date End Date Nicanor Chow MD [address] [place] [address] PCP - General Family Medicine 12/16/17
--- OUTSIDE RECORDS SUMMARY | 2024-11-28 08:26 | XMS_ITS | Clinical Summary ---
Author Organization [facility] Address [address] [place] [address] Care Team Providers Care Metaphysician Name Role Phone Nicanor Chow MD Unavailable [phone] Social History Tobacco Use Types Packs/Day Years Used Date Smoking Tobacco: Never Assessed Comments Unknown Sex and Gender Information Value Date Recorded Sex Assigned at Not on file Legal Sex Female 1:40 PM EST Gender Identity Not on file Sexual Orientation Not on file Plan of Treatment Not on file Insurance [facility] MEDICAID Care Teams Metaphysician Relationship Specialty Start Date End Date Nicanor Chow MD [address] [place] [address] Referring Family Medicine 04/24/24
--- OUTSIDE RECORDS SUMMARY | 2024-11-28 08:26 | XMS_ITS | Patient Health Record ---
Author Organization [facility] es Address [address] [place] [address] Care Team Providers Care Surgical Instrument Maker Name Role Phone Darrion Marcos Primary Care Provider Abigail Gillis Unavailable Tiffanie Mathew Unavailable [phone] Reason For Referral No Information Encounters Encounter Location Date Provider Diagnosis [address] [place] [address] 07/25/2024 Darrion Marcos Encounter for dental examination and cleaning with abnormal findings Z01.21 ; Other dental procedure status Z98.818 ; Disturbances in tooth eruption K00.6 ; Dental caries on pit and fissure surface penetrating into dentin K02.52 ; Necrosis of pulp K04.1 and Acute gingivitis, plaque induced K05.00 [address] [place] [address] 07/26/2024 Abigail Jc Dental caries on pit and fissure surface penetrating into dentin K02.52 [address] [place] [address] 08/02/2024 Abigail Solano Jc Dental caries on pit and fissure surface penetrating into dentin K02.52 [address] [place] [address] 09/02/2024 Tiffanie Mathew Dental caries on pit and fissure surface penetrating into dentin K02.52 and Acute gingivitis, plaque induced K05.00 Assessments Encounter Date Diagnosis (ICD Code) Assessment Notes Treatment Notes Treatment Clinical Notes Section Notes 07/26/2024 Dental caries on pit and fissure surface penetrating into dentin (ICD-10 - K02.52) 08/02/2024 Dental caries on pit and fissure surface penetrating into dentin (ICD-10 - K02.52) 09/02/2024 Dental caries on pit and fissure surface penetrating into dentin (ICD-10 - K02.52) 07/25/2024 Encounter for dental examination and cleaning with abnormal findings (ICD-10 - Z01.21) 07/25/2024 Other dental procedure status (ICD-10 - Z98.818) 09/02/2024 Acute gingivitis, plaque induced (ICD-10 - K05.00) 07/25/2024 Disturbances in tooth eruption (ICD-10 - K00.6) 07/25/2024 Dental caries on pit and fissure surface penetrating into dentin (ICD-10 - K02.52) 07/25/2024 Necrosis of pulp (ICD-10 - K04.1) 07/25/2024 Acute gingivitis, plaque induced (ICD-10 - K05.00) Plan Of Treatment Next Appt Details Provider Name:Abigail Jc, 01/08/2025 01:00:00 PM, [address] [place], [address], Provider Name:Tiffanie Mathew, 03/24/2025 02:45:00 PM, [address] [place], [address], Insurance Providers Payer Name Payer Address Payer Phone Subscriber Number Group Number Insured Name Patient Relationship to Insured Coverage Start Date Coverage End Date [employer] [place] [address] [place] [address] [id number] KYRA CANO Self - patient is the insured [employer] [facility] [address] [place] [address] [id number] KYRA CANO Self - patient is the insured 5
== END 2024-11-28 08:24 | disposition home or self-care (01) ==
LOC: CT 08:23
PROVIDERS: PCP Family Medicine; Visit Provider Family Medicine
DX: R22.2 Localized swelling, mass and lump, trunk (principal)
CPT/HCPCS: 71260; Q9967